=== PATIENT | female | born 1955 | race Caucasian/White ===

== ENCOUNTER → 2016-08-24 | Day surgery (SDC) | payer BC ==
[~2016-08-24] VITALS: Ht 154.9 cm; Wt 61.8 kg
[~2016-08-24] MED LIST: AZO URINARY P97.5 MG PO; CLARITIN10 MG PO; DITROPAN5 MG PO; FLOMAX0.4 MG PO; GLUCOPHAGE500 MG PO; NORCO 5-325 TA1 EACH PO; PERI-COLACE TA1 EACH PO; VIVELLE-DOT1 EAC1 TOP
--- NOTE | ~2016-08-24 | OR ---
PATIENT'S NAME: BRIGID FONG [facility] AGE: 61 Y [address] ROOM: [place] [address] [place] [facility] [place] DATE: 08/24/2016 OR/Procedure Report DISCHARGE DATE: FAMILY PHYSICIAN: Latia Mai MD ATTENDING PHYSICIAN: BRUNILDA JUDD SURGEON: Brunilda Judd MD GEAR AND SPLINE GRINDER: None. DATE OF PROCEDURE: 08/24/2016 PREOPERATIVE DIAGNOSES: 1. Left distal ureteral calculus. 2. Bilateral nephrolithiasis. POSTOPERATIVE DIAGNOSES: 1. Left distal ureteral calculus. 2. Bilateral nephrolithiasis. ANESTHESIA ADMINISTERED: Monitored anesthesia care. OPERATIVE PROCEDURES: 1. Ureteroscopic extraction of left distal ureteral stone. 2. Cystoscopy with placement of indwelling left ureteral stent. INDICATIONS FOR PROCEDURE: The patient is a pleasant 61-year-old female with history of recurrent nephrolithiasis. She recently presented with left flank pain and was found to have a 2.5 mm distal left ureteral calculus at her ureterovesical junction. She was not doing well with a trial of stone passage and presented for definitive treatment. She was explained the risks, benefits, indications, and alternatives to the above procedure and wished to proceed and consented freely. DESCRIPTION OF OPERATION: The patient was brought back to the operating room, where she was placed on the OR table in the supine position. A surgical time- out was called where patient identification, surgical site, and procedure was then verified. We also did verify that the patient received an IV Levaquin antibiotic within an hour of beginning the procedure. The patient underwent successful administration of monitored anesthesia care. The patient was then moved and placed in a low lithotomy position. Her genital area was then prepped and draped in the usual sterile fashion. I then carefully advanced the rigid cystoscope into her bladder. Her urethra was within normal limits. Upon entering her bladder, full nunez-cystoscopy was performed. Her bladder was negative for any bladder tumors, cellules, or diverticula. Her ureteral orifices were noted to be in their orthotopic location. I did visualize her distal left ureteral stone just inside her ureteral orifice. I then utilized the stone grasping forceps to carefully navigate into her distal left ureter PATIENT'S NAME: BRIGID FONG [facility] AGE: 61 Y [address] ROOM: [place], [place] [address] LOC[place]: [facility] [place] DATE: 08/24/2016 OR/Procedure Report DISCHARGE DATE: FAMILY PHYSICIAN: Latia Mai MD ATTENDING PHYSICIAN: BRUNILDA JUDD to grasp the stone and was able to extract this without the need for lithotripsy. I sent the stone off for analysis. There did appear to be some edema where the stone had been impacted, and at this point, I elected to place a stent. I had already advanced a Sensor guidewire up the patient's left ureter. Over the guidewire, I advanced a 4.8-Grenadian multi-length ureteral stent deploying it, noting a good curl fluoroscopically in the patient's left renal collecting system as well as a good curl fluoroscopically and visually within her bladder. I then emptied her bladder. Of note, we did leave strings attached to the distal curl of the indwelling left ureteral stent. I had emptied her bladder, and the patient was then taken out of the lithotomy position where she was awoken from monitored anesthesia care, transferred to the recovery bed, and transported to the recovery room in good condition. COMPLICATIONS: None. DRAINS: Indwelling 4.8-Grenadian multi-length left ureteral stent. SPECIMEN: Stone for stone analysis. ESTIMATED BLOOD LOSS: Minimal. FOLLOWUP PLAN: We will plan to have the patient remove the stent at home this coming Saturday, August 27, 2016, by pulling on the strings, and then I will plan to see her back for followup in my outreach clinic in [place] in 4 to 6 weeks to further discuss stone prevention, but also the followup plan for her bilateral nephrolithiasis. BRUNILDA JUDD MD GP/modl /[id number] CC: Latia Mai MD d: 08/24/16 0940 t: 08/28/16 1936, OPERATIVE SUMMARY
--- NOTE | ~2016-08-24 | HP ---
PATIENT'S NAME: BRIGID FONG [facility] AGE: 61 Y [address] ROOM: [place] [address] [place] [facility] [place]: 08/24/2016 History & Physical DISCHARGE DATE: FAMILY PHYSICIAN: Latia Mai MD ATTENDING PHYSICIAN: BRUNILDA OLMEDO DATE OF SERVICE: CHIEF COMPLAINT: Left flank pain. HISTORY OF PRESENT ILLNESS: The patient is a pleasant 61-year-old female, who has a prior history of stones, who had recently presented with left flank pain and urinary frequency on August 21, 2016. She underwent a CT scan where she was found to have a 2.5 mm distal left ureteral stone at the ureterovesical junction. She also was found to have several nonobstructing stones measuring 2.5 mm in size and there were 4 to 5 of these in the left kidney as well as 2 nonobstructing stones in the right kidney measuring 2 mm in size each in the upper pole and lower pole of the right kidney. She also was noted to have some minimal left hydroureteronephrosis. She initially opted for a trial of stone passage, but was having difficulty with continued severe pain yesterday. She has been taking tamsulosin and pain medication. She had previously underwent treatment by Dr. Marcelo Addison in 2004 with bilateral extracorporeal shock wave lithotripsy. She had also underwent a metabolic evaluation by Dr. Addison in 2005. The patient has no further questions or concerns. PAST MEDICAL HISTORY: 1. Recurrent nephrolithiasis. 2. Diabetes mellitus. 3. Hypertension. 4. Hyperlipidemia. PAST SURGICAL HISTORY: 1. x2. 2. Bilateral bunion surgery. 3. Partial hysterectomy. 4. Bilateral oophorectomy and salpingectomy. 5. Bilateral extracorporeal shockwave lithotripsy on March 20, 2005. 6. Cystoscopy with left stent placement on March 12, 2005. FAMILY HISTORY: She does report a family history of kidney stones. PATIENT'S NAME: BRIGID FONG [place] AGE: 61 Y [address] 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 She has never smoked. She does drink alcohol on occasion. The patient is and has 2 children. ALLERGIES: NO KNOWN DRUG ALLERGIES. MEDICATIONS: See hospitalization medication reconciliation. REVIEW OF SYSTEMS: A full 10+ point review of systems was performed with pertinent positive and negative findings included in the history of present illness. All other systems reviewed and are otherwise negative. PHYSICAL EXAMINATION: VITAL SIGNS: Stable. CONSTITUTIONAL: No acute distress. Hemodynamically stable. The patient is awake and oriented. HEENT: Extraocular muscles intact. Mucous membranes moist. No drainage per ears or nose. CARDIAC: Good peripheral perfusion. No tachycardia. RESPIRATORY: No audible wheezing or stridor. ABDOMEN: Benign. MUSCULOSKELETAL: Moves all extremities. NEUROLOGIC: No focal deficits noted. PSYCHIATRIC: Normal affect and answers questions appropriately. HEMATOLOGIC: No active sites of bruising or bleeding. IMAGING: I personally reviewed her CT scan images consistent with findings noted above in the history of present illness. IMPRESSION: 1. Distal 2.5 mm left ureteral calculus. 2. Bilateral nephrolithiasis. PLAN: I had a long discussion today with the patient regarding my findings. She has not been doing well with a trial of stone passage with continued severe pain. We discussed her treatment options including left ureteroscopy, ureteroscopic stone extraction, possible laser lithotripsy, and stent placement. We discussed the risks, benefits, indications, and alternatives to the above procedure, and she wished to proceed and is consenting freely. I also PATIENT'S NAME: BRIGID FONG [place] AGE: 61 Y [address] ROOM: [place], [place] [address] [place] [facility] [place]: 08/24/2016 History & Physical DISCHARGE DATE: FAMILY PHYSICIAN: Latia Mai MD ATTENDING PHYSICIAN: BRUNILDA OLMEDO discussed ultimate followup with another metabolic evaluation to help with stone prevention but also continuing to keep an eye on the small bilateral nephrolithiasis. Her options for the small renal stones to include continued observation versus extracorporeal shockwave lithotripsy or ureteroscopy with possible laser lithotripsy. The patient has no further questions or concerns at this time. MD ALFRED HALL/mickil /[id number] CC: Latia Mai MD D: [id number] T: [id number] HISTORY & PHYSICAL
== END | disposition disaster alternative care site (69) ==
LOC: GPOC 08-23 17:00 → GSDC 06:26
PROC: 0TC78ZZ Extirpation of Matter from Left Ureter, Via Natural or Artificial Opening Endoscopic (ICD-10-PCS; principal; 2016-08-24)
PROC: 0T778DZ Dilation of Left Ureter with Intraluminal Device, Via Natural or Artificial Opening Endoscopic (ICD-10-PCS; 2016-08-24)
DX: N13.2 Hydronephrosis with renal and ureteral calculous obstruction (principal); E11.9 Type 2 diabetes mellitus without complications; I10 Essential (primary) hypertension; E78.5 Hyperlipidemia, unspecified; Z90.710 Acquired absence of both cervix and uterus; Z98.890 Other specified postprocedural states
CPT/HCPCS: C1769; C2617; J1956; J2001; J7030